=== PATIENT | female | born 2005 | race Caucasian/White ===

== ENCOUNTER 2025-05-24 10:28 | Inpatient (IN) ==
--- NOTE | 2025-05-24 11:02 | Emergency Department Note ---
Impression & Plan UTI (urinary tract infection), Nausea, C. difficile colitis ED Provider Note CHIEF COMPLAINT: Abdominal pain HISTORY OF PRESENTING ILLNESS: Patient is a 20-year-old female presents to the emergency department today for complaints of abdominal pain. She reports following with GI at [facility] closely over the past several months and last month was diagnosed with Crohn's disease. While having a workup for Crohn's disease she tested positive for C. difficile 9 days ago and was placed on antibiotics. Today is the last day of her antibiotics. She states yesterday she did develop abdominal pain with nausea but no vomiting. This coming week she is going to start her first infusion of Remicade. She does have a history of abdominal problems such as small bowel obstruction, ileocolitis, nausea and vomiting. She reports yesterday she did take a laxative due to not moving her bowels for 2 to 3 days. She did take a bisacodyl tablet and was able to move her bowels shortly after. She denies any fevers/chills, vomiting, shortness of breath, chest pain, headaches, blurred vision, any neurological complaints, any blood in stool or urine, recent travel, or recent illness. REVIEW OF SYSTEMS: See HPI for pertinent positives and pertinent negatives. ALLERGIES: See below MEDICATIONS: See below PAST MEDICAL HISTORY: See below PHYSICAL EXAM: VITAL SIGNS - Vital signs and nursing notes were reviewed. GENERAL -20-year-old female appearing her stated age who is in no acute distress. Communicates well with provider and answers questions appropriately. HEAD - NC/AT. EYES - PERRL with EOMI bilaterally. Sclera anicteric. Palpebral conjunctiva pink and moist with no injection noted. MOUTH/OROPHARYNX - Without perioral cyanosis. Buccal mucosa pink and moist and without leukoplakia. Tongue midline with equal elevation of palate bilaterally. No tonsillar hypertrophy, erythema, or exudates noted. Good dentition noted. NECK - Neck with FROM. Supple to palpation. No nuchal rigidity. LUNGS - Chest wall symmetric without accessory muscle use, intercostals retractions, or central cyanosis. Normal vesicular breath sounds CTA B/L. No wheezes, rales, or rhonchi appreciated. CARDIAC - RRR with S1/S2. No murmur, rubs, or gallops appreciated. ABDOMEN - Abdominal contour is without pulsations or visible masses. Negative Crow's or Jimenez Jones's Signs. BS normoactive all four quadrants. No tenderness to palpation appreciated in all 4 quadrants. No guarding. No rebound Tenderness. No Vovsing's. No Robison's. No palpable masses, hepatosplenomegaly, or ascites noted. PSYCH - A&Ox3 and cooperates fully with examiner. Pt is very pleasant and interacts well with examiner. DIFFERENTIAL DIAGNOSIS: Differential diagnosis includes appendicitis, diverticulitis, bowel obstruction, inflammatory bowel disease, renal colic, PUD, biliary pathology, pancreatitis, mesenteric ischemia, aortic pathology, infection, genitourinary, UTI, perforated viscus, among others. ED COURSE AND MEDICAL DECISION MAKING: HISTORY FROM INDEPENDENT HISTORIAN: History was provided by the patient and her significant other who is at bedside. MONITOR: Continuous radiation monitor: Order was placed for continuous radiation monitor. Patient was placed on the radiation monitor and continuous pulse ox. Patient was noted to be in normal sinus rhythm at an initial rate of 96 bpm per my interpretation. INTERPRETATION OF LABS: I interpreted the labs with full lab results as below in the lab section of this note. Laboratory results pertinent to the emergent complaint are discussed in the MDM section below. The patient was advised to follow up with their PCP and/or specialist(s) for further outpatient monitoring and management of any abnormal results. INTERPRETATION OF IMAGING: Imaging studies were interpreted by myself and read by radiology as per the imaging section of this note. The patient was advised to follow up with their PCP and/or specialist(s) for further outpatient management of any non-emergent abnormal findings. CHRONIC MEDICAL/SOCIAL CONDITIONS AFFECTING CARE: No social concerns were identified as barriers to patients care. EXTERNAL RECORDS REVIEWED: I personally reviewed the patient's [facility] GI office visit from 04/16/2025. This reviewed the patient's recent hospitalization here at [facility] for a small bowel obstruction with ileocolitis. I also reviewed multiple communications between the patient, GI, her primary care doctor, and the pharmacist discussing the patient's symptoms, diagnosis, and diagnostic test results. ESCALATION OF CARE CONSIDERED: I considered admission on this patient with significant UTI with ascending infection, bladder. CONSULTATIONS: I consulted with the ED pharmacist and discussed antibiotic usage due to the patient's suspected C. difficile infection that was being treated with vancomycin. I consulted with Dr. Horner for admission to the hospital. The patient was accepted. SUMMARY: I examined the patient for complaints of abdominal pain. A physical exam and history were performed. Nursing notes, EMR, and medication list were personally reviewed. CBC showed a leukocytosis of 14.27. No anemia or thrombocytopenia. CMP showed no emergent findings, creatinine was 0.55. Lipase was 8. Urinalysis showed a turbid appearance, pH of 8, +3 protein, +2 ketones +3 blood, nitrate positive, leukocytes +2, white blood cells greater than 50, red blood cells greater than 20, hyaline cast 6-10, epithelial cells 3-5, urine bacteria +1. Serum hCG qualitative was negative. CT of the abdomen and pelvis showed cystitis with bilateral ascending UTI that is mildly greater on the right. There is free fluid in the pelvis, and mild wall thickening of the distal terminal ileum likely related to the Crohn's disease. There is improvement in inflammation from previous CT scan on 04/04/2025. On further review of the patient's chart from [facility] the patient was on her last day of vancomycin course for probable C. difficile infection. I do have concern with starting patient on antibiotics with the C. difficile. I did speak with the ED pharmacist who stated it would be better to hold off until the urine culture came back and the patient is not symptomatic. On reevaluation of the patient and asking her more specific UTI question she did state that she is not currently having any symptoms but a few days ago she did develop them and feels that the vancomycin did help mildly. However with the patient's CT scan showing ascending UTI the patient would benefit from IV antibiotics. Patient was given 1 L of normal saline, Zofran 4 mg, Tylenol 1 g IV with improvement in pain and nausea. I consulted with Dr. Horner for admission to the hospital. The patient was accepted. DIAGNOSIS: UTI, nausea, C. difficile TREATMENT PLAN/DISCHARGE INSTRUCTIONS: Admit to hospitalist services. Past Med/Surg History Problem List (Updated 05/24/25 @ 16:06 by EDUARD Ivey) C. difficile colitis (Acute) Nausea (Acute) UTI (urinary tract infection) (Acute) Ileocolitis Nausea & vomiting (Acute) Abdominal pain (Acute) SBO (small bowel obstruction) (Acute) Medical History OCD (obsessive compulsive disorder) Surgical History History of dental surgery Family History Grandfather (Maternal) Colorectal cancer Social History Smoking Status: Never smoker Hx Alcohol Use: Yes Alcohol type: wine Alcohol Intake Frequency: Monthly or Less Hx Substance Use: No Preferred Language: Ukrainian Communication Ability: Effective Gta Required: No Beliefs That Will Affect Care: None marital status: Single Current Living Situation: Significant Other current occupational status: employed Feels Safe at Home: Yes Assistive Devices: None Allergies Allergies Allergy/AdvReac Type Severity Reaction Status Date / Time No Known Allergies Allergy Unverified 04/04/25 10:22 Home Meds Home Medications Medication Instructions Recorded Confirmed melatonin 5 mg tablet 10 mg PO HS PRN Sleep 02/04/19 05/24/25 sertraline 100 mg tablet 100 mg PO DAILY 04/04/25 05/24/25 sertraline 50 mg tablet 50 mg PO DAILY 04/04/25 05/24/25 vancomycin 125 mg capsule 125 mg PO QID 05/24/25 05/24/25 Results & Data (ED) Vital Signs Vital Signs - 24 hr 05/24/25 10:31 05/24/25 11:06 05/24/25 11:18 Temperature 37.3 C Temperature Source Temporal Artery Scan Pulse Rate 107 H 97 H Pulse Rate from SpO2 Sensor 97 H Respiratory Rate 18 17 Respiratory Effort / Characteristics Non-Labored Spontaneous Respiratory Depth Normal Respiratory Pattern Regular Blood Pressure 120/69 Blood Pressure Mean 86 Pulse Oximetry 99 98 100 Oxygen Delivery Method Room Air Room Air Sepsis Recent Fever Within 48 Hours No Sepsis New/Unexplained Change in Mental Status N/A Sepsis Action Taken by Nursing No Action Required 05/24/25 11:24 05/24/25 11:30 05/24/25 11:30 Temperature Temperature Source Pulse Rate 88 97 H Pulse Rate from SpO2 Sensor 92 H 99 H Respiratory Rate 12 19 Respiratory Effort / Characteristics Respiratory Depth Respiratory Pattern Blood Pressure 104/70 Blood Pressure Mean 83 Pulse Oximetry 99 100 Oxygen Delivery Method Sepsis Recent Fever Within 48 Hours Sepsis New/Unexplained Change in Mental Status Sepsis Action Taken by Nursing 05/24/25 11:48 05/24/25 11:51 05/24/25 12:26 Temperature Temperature Source Pulse Rate 95 H 101 H 101 H Pulse Rate from SpO2 Sensor 95 H 104 H Respiratory Rate 15 23 Respiratory Effort / Characteristics Respiratory Depth Respiratory Pattern Blood Pressure Blood Pressure Mean Pulse Oximetry 99 97 Oxygen Delivery Method Sepsis Recent Fever Within 48 Hours Sepsis New/Unexplained Change in Mental Status Sepsis Action Taken by Nursing 05/24/25 12:30 05/24/25 12:30 05/24/25 12:30 Temperature Temperature Source Pulse Rate 92 H Pulse Rate from SpO2 Sensor 92 H Respiratory Rate 21 Respiratory Effort / Characteristics Respiratory Depth Respiratory Pattern Blood Pressure 92/55 L 92/55 L Blood Pressure Mean 67 67 Pulse Oximetry 97 Oxygen Delivery Method Sepsis Recent Fever Within 48 Hours Sepsis New/Unexplained Change in Mental Status Sepsis Action Taken by Nursing 05/24/25 12:57 05/24/25 13:00 05/24/25 13:15 Temperature Temperature Source Pulse Rate 90 86 Pulse Rate from SpO2 Sensor 91 H 89 Respiratory Rate 18 17 Respiratory Effort / Characteristics Respiratory Depth Respiratory Pattern Blood Pressure 98/59 L Blood Pressure Mean 73 Pulse Oximetry 97 98 Oxygen Delivery Method Sepsis Recent Fever Within 48 Hours Sepsis New/Unexplained Change in Mental Status Sepsis Action Taken by Nursing 05/24/25 13:36 05/24/25 13:51 05/24/25 14:00 Temperature Temperature Source Pulse Rate 81 86 Pulse Rate from SpO2 Sensor 80 85 Respiratory Rate 15 17 Respiratory Effort / Characteristics Respiratory Depth Respiratory Pattern Blood Pressure 91/62 L Blood Pressure Mean 75 Pulse Oximetry 97 98 Oxygen Delivery Method Sepsis Recent Fever Within 48 Hours Sepsis New/Unexplained Change in Mental Status Sepsis Action Taken by Nursing 05/24/25 14:00 05/24/25 14:00 05/24/25 14:21 Temperature Temperature Source Pulse Rate 84 Pulse Rate from SpO2 Sensor 85 Respiratory Rate 13 Respiratory Effort / Characteristics Respiratory Depth Respiratory Pattern Blood Pressure 91/62 L 91/62 L Blood Pressure Mean 75 75 Pulse Oximetry 97 Oxygen Delivery Method Sepsis Recent Fever Within 48 Hours Sepsis New/Unexplained Change in Mental Status Sepsis Action Taken by Nursing 05/24/25 14:30 05/24/25 14:30 05/24/25 14:42 Temperature Temperature Source Pulse Rate 75 71 Pulse Rate from SpO2 Sensor 72 72 Respiratory Rate 15 20 Respiratory Effort / Characteristics Respiratory Depth Respiratory Pattern Blood Pressure 86/61 L Blood Pressure Mean 69 Pulse Oximetry 97 96 Oxygen Delivery Method Sepsis Recent Fever Within 48 Hours Sepsis New/Unexplained Change in Mental Status Sepsis Action Taken by Nursing 05/24/25 14:43 05/24/25 14:51 Temperature Temperature Source Pulse Rate 77 Pulse Rate from SpO2 Sensor 79 Respiratory Rate 20 Respiratory Effort / Characteristics Respiratory Depth Respiratory Pattern Blood Pressure 89/58 L Blood Pressure Mean 61 Pulse Oximetry 99 Oxygen Delivery Method Sepsis Recent Fever Within 48 Hours Sepsis New/Unexplained Change in Mental Status Sepsis Action Taken by Nursing Laboratory Data 05/24/25 10:53 05/24/25 11:04 Lab Results 05/24/25 05/24/25 05/24/25 Range/Units 10:53 11:04 12:30 WBC 14.27 H (4.8-10.8) K/ul RBC 3.99 L (4.20-5.40) M/uL Hgb 12.0 (12.0-16.0) g/dl Hct 35.7 L (37.0-47.0) % MCV 89.5 (80.0-100.0) fL MCH 30.1 (25.0-34.0) pg MCHC 33.6 (32.0-36.0) g/dL RDW Std Deviation 41.1 (36.4-46.3) fL RDW Coeff of [place] 12.4 (11.5-14.5) % Plt Count 335 (130-400) K/uL MPV 10.1 (9.4-12.4) fL Immature Gran % (Auto) 0.4 % Neut % (Auto) 82.1 % Lymph % (Auto) 7.5 % [place] % (Auto) 9.5 % Eos % (Auto) 0.1 % Baso % (Auto) 0.4 % Neut # (Auto) 11.71 H (1.40-6.50) K/uL Lymph # (Auto) 1.07 L (1.20-3.40) K/uL [place] # (Auto) 1.36 H (0.11-0.59) K/uL Eos # (Auto) 0.02 (0.00-0.50) K/uL Baso # (Auto) 0.05 (0.00-0.20) K/uL Immature Gran # (Auto) 0.06 (0.01-0.20) K/uL Sodium 138 (136-145) mmol/L Potassium 3.8 (3.5-5.1) mmol/L Chloride 105 (98-107) mmol/L Carbon Dioxide 25 (21-32) mmol/L Anion Gap 8 (3-11) BUN 6 (6-23) mg/dl Creatinine 0.55 L (0.6-1.2) mg/dl Est Cr Clr Drug Dosing 139.1 ml/min eGFR 132.83 BUN/Creatinine Ratio 10.9 (10-20) Glucose 104 H (70-99(Fasting)) mg/dl Lactate (0.4-2.0) mmol/L Calcium 9.4 (8.6-10.3) mg/dl Total Bilirubin 0.6 (0.2-1.0) mg/dl AST 10 L (13-39) U/L ALT 7 (7-52) U/L Alkaline Phosphatase 51 (34-104) U/L Total Protein 7.6 (6.0-8.3) gm/dl Albumin 4.4 (3.4-5.0) gm/dl Globulin 3.2 (2.5-4.0) gm/dl Albumin/Globulin Ratio 1.4 (0.9-2) Lipase 8 L (11-82) U/L HCG, Qual Negative (Negative) Urine Color Recluse Urine Appearance Turbid A (Clear) Urine pH 8.0 H (4.5-7.5) Ur Specific [place] 1.017 (1.000-1.030) Urine Protein 3+ H (Negative) Urine Glucose (UA) Negative (Negative) Urine Ketones 2+ H (Negative) Urine Blood 3+ H (Negative) Urine Nitrite Positive A (Negative) Urine Bilirubin Negative (Negative) Urine Urobilinogen Negative (Negative) Ur Leukocyte Esterase 2+ H (Negative) Urine WBC (Auto) >50 H (0-5) /hpf Urine RBC (Auto) >20 H (0-2) /hpf U Hyaline Cast (Auto) 6-10 H (0-2) /lpf U Epithel Cells (Auto) 3-5 H (0-2) /hpf Urine Bacteria (Auto) 1+ H (None Seen) Urine Comment 05/24/25 Range/Units 14:47 WBC (4.8-10.8) K/ul RBC (4.20-5.40) M/uL Hgb (12.0-16.0) g/dl Hct (37.0-47.0) % MCV (80.0-100.0) fL MCH (25.0-34.0) pg MCHC (32.0-36.0) g/dL RDW Std Deviation (36.4-46.3) fL RDW Coeff of [place] (11.5-14.5) % Plt Count (130-400) K/uL MPV (9.4-12.4) fL Immature Gran % (Auto) % Neut % (Auto) % Lymph % (Auto) % [place] % (Auto) % Eos % (Auto) % Baso % (Auto) % Neut # (Auto) (1.40-6.50) K/uL Lymph # (Auto) (1.20-3.40) K/uL [place] # (Auto) (0.11-0.59) K/uL Eos # (Auto) (0.00-0.50) K/uL Baso # (Auto) (0.00-0.20) K/uL Immature Gran # (Auto) (0.01-0.20) K/uL Sodium (136-145) mmol/L Potassium (3.5-5.1) mmol/L Chloride (98-107) mmol/L Carbon Dioxide (21-32) mmol/L Anion Gap (3-11) BUN (6-23) mg/dl Creatinine (0.6-1.2) mg/dl Est Cr Clr Drug Dosing ml/min eGFR BUN/Creatinine Ratio (10-20) Glucose (70-99(Fasting)) mg/dl Lactate 0.5 (0.4-2.0) mmol/L Calcium (8.6-10.3) mg/dl Total Bilirubin (0.2-1.0) mg/dl AST (13-39) U/L ALT (7-52) U/L Alkaline Phosphatase (34-104) U/L Total Protein (6.0-8.3) gm/dl Albumin (3.4-5.0) gm/dl Globulin (2.5-4.0) gm/dl Albumin/Globulin Ratio (0.9-2) Lipase (11-82) U/L HCG, Qual (Negative) Urine Color Urine Appearance (Clear) Urine pH (4.5-7.5) Ur Specific [place] (1.000-1.030) Urine Protein (Negative) Urine Glucose (UA) (Negative) Urine Ketones (Negative) Urine Blood (Negative) Urine Nitrite (Negative) Urine Bilirubin (Negative) Urine Urobilinogen (Negative) Ur Leukocyte Esterase (Negative) Urine WBC (Auto) (0-5) /hpf Urine RBC (Auto) (0-2) /hpf U Hyaline Cast (Auto) (0-2) /lpf U Epithel Cells (Auto) (0-2) /hpf Urine Bacteria (Auto) (None Seen) Urine Comment Administered Medications Sodium Chloride (Nss) 1,000 mls @ 100 mls/hr IV .Q10H JAYDA Stop: 05/25/25 00:14 Last Admin: 05/24/25 14:34 Dose: 100 mls/hr Documented By: TOMI Piperacillin Sod/Tazobactam Sod (Zosyn) 4.5 gm in 100 mls @ 200 mls/hr IV NOW STA; Protocol Stop: 05/24/25 16:06 Last Admin: 05/24/25 15:47 Dose: 200 mls/hr Documented By: TOMI Discontinued Medications Sodium Chloride (Nss) 1,000 mls @ 999 mls/hr IV .Q1H1M STA Stop: 05/24/25 11:51 Last Infusion: 05/24/25 12:15 Dose: Infused Documented By: Admin: 05/24/25 11:14 Dose: 999 mls/hr Documented By: JERRY Acetaminophen (Ofirmev) 1,000 mg in 100 mls @ 400 mls/hr IV NOW STA Stop: 05/24/25 11:05 Last Infusion: 05/24/25 11:30 Dose: Infused Documented By: Admin: 05/24/25 11:15 Dose: 400 mls/hr Documented By: JERRY Sodium Chloride (Nss) 500 mls @ 999 mls/hr IV .Q31M ONE Stop: 05/24/25 15:11 Last Admin: 05/24/25 14:45 Dose: 999 mls/hr Documented By: TOMI Ioversol (Optiray 320 100ml) 94 ml IV ONCE ONE Stop: 05/24/25 12:19 Last Admin: 05/24/25 12:18 Dose: 94 ml Documented By: JADE Ondansetron HCl (Ondansetron Inj 2 Mg/Ml 2 Ml Vial) 4 mg IV NOW STA Stop: 05/24/25 10:52 Last Admin: 05/24/25 11:16 Dose: 4 mg Documented By: JERRY Imaging Data Radiologist's Impression: Abdomen/Pelvis CT 05/24/25 10:54 CT SCAN OF THE ABDOMEN AND PELVIS WITH IV CONTRAST CLINICAL HISTORY: Generalized abdominal pain. Reported history of Crohn's disease. COMPARISON STUDY: Abdominal CT dated 04/04/2025. TECHNIQUE: Following the IV administration of 94 cc of Optiray 320, CT scan of the abdomen and pelvis is performed from the lung bases to the proximal femora. Images are reviewed in the axial, sagittal, and coronal planes. IV contrast was administered without complication. A dose lowering technique was utilized adhering to the principles of ALARA. CT DOSE: 470.21 mGy.cm FINDINGS: Lung bases: The heart is normal in size and without pericardial effusion. The lung bases are clear. Liver: The contrast-enhanced liver is normal in size, contour, and attenuation. There is no intrahepatic biliary ductal dilatation. The hepatic veins and portal veins are patent. Gallbladder: Unremarkable. Spleen: Normal in size and attenuation. Pancreas: Unremarkable. Adrenal glands: Unremarkable. Kidneys: The contrast enhanced kidneys are normal in size and without hydronephrosis. Urothelial thickening and enhancement is seen involving both ureters, right side greater than left. There is bilateral perinephric stranding, right side greater than left. Perinephric fluid is seen on the right. The kidneys enhance symmetrically. Abdominal vasculature: The abdominal aorta is normal in course and caliber. Bowel: There is no bowel obstruction. There is mild wall thickening distal/terminal ileum without surrounding inflammation. This likely corresponds to known history of Crohn's disease. The appendix is normal as visualized. Peritoneum: There is no intraperitoneal free air or abdominal ascites. There is a fat-containing umbilical hernia. Lymphadenopathy: None. Pelvic viscera: The bladder wall is thickened with mucosal hyperemia surrounding inflammation. The uterus and adnexa are normal as visualized no definite bilateral ovarian follicles. There is a small volume of free fluid in the cul-de-sac. Skeletal structures: No lytic or blastic lesions are seen. IMPRESSION: 1. There is evidence of cystitis with bilateral ascending urinary tract infections. This is greater on the right. Correlate with clinical findings and urinalysis. 2. Free fluid in the pelvis is nonspecific and likely physiologic. 3. There is mild wall thickening of the distal/terminal ileum, likely related to the known history of Crohn's disease. Inflammation has significantly improved from 04/04/2025. 4. Additional findings as above. ACT 112: Negative or not required by law. Electronically signed by: Ruben Hernandez M.D. 05/24/2025 1:04 PM Discharge Plan Visit Data Chief Complaint: Abdominal Pain Stated Complaint: STOMACH PAIN / CROHN W/ CDIFF ED Provider: Airam Macias ED Midlevel Provider: Sushma Montiel Discharge Problem: UTI (urinary tract infection), Nausea, C. difficile colitis Patient Disposition: Admitted As Inpatient Condition: Good Forms Stand Alone Forms: [facility] Prescriptions Prescriptions: No Action melatonin 5 mg Tablet 10 mg PO HS PRN (Reason: Sleep) sertraline 100 mg tablet 100 mg PO DAILY Rx Instructions: Take w/ 50mg to equal 150mg by mouth once daily sertraline 50 mg tablet 50 mg PO DAILY Rx Instructions: Take w/ 100mg to equal 150mg by mouth once daily vancomycin 125 mg capsule 125 mg PO QID Referrals Referrals: Ambreen Wright PA-C [Outside Practitioners] - Discharge Problem: UTI (urinary tract infection) Qualifiers: Urinary tract infection type: site unspecified Hematuria presence: without hematuria Qualified Code(s): N39.0 - Urinary tract infection, site not specified
[2025-05-24 11:14] LABS: Hematocrit (blood only) 35.7 % (37.0-47.0); Hemoglobin 12.0 g/dl (12.0-16.0); Immature Granulocytes # (auto) 0.06 K/uL (0.01-0.20); Immature Granulocytes % (auto) 0.4 %; Mean Corpuscular Hemoglobin 30.1 pg (25.0-34.0); Mean Corpuscular Volume 89.5 fL (80.0-100.0); Platelet Count 335 K/uL (130-400); RDW Standard Deviation 41.1 fL (36.4-46.3); Red Blood Count 3.99 M/uL (4.20-5.40); White Blood Count 14.27 K/ul (4.8-10.8)
[2025-05-24] MEDS: SODIUM CHLORIDE 0.9% 1,000 ML IV STA (11:14)
[2025-05-24] MEDS: ACETAMINOPHEN 1,000 MG/100 ML VIAL IV STA (11:15)
[2025-05-24] MEDS: ONDANSETRON INJ 2 MG/ML 2 ML VIAL IV STA (11:16)
[2025-05-24 11:31] LABS: Pregnancy Test, Serum Negative (Negative)
[2025-05-24 11:33] LABS: Alanine Aminotransferase 7.0 U/L (7-52); Albumin Globulin Ratio 1.4 (0.9-2); Alkaline Phosphatase 51.0 U/L (34-104); Anion Gap 8.0 (3-11); Bilirubin,Total 0.6 mg/dl (0.2-1.0); Blood Urea Nitrogen 6.0 mg/dl (6-23); Calcium 9.4 mg/dl (8.6-10.3); Carbon Dioxide 25.0 mmol/L (21-32); Chloride 105.0 mmol/L (98-107); Creatinine Clr Calc Pharmacy 139.1 ml/min; Globulin 3.2 gm/dl (2.5-4.0); Glucose 104.0 mg/dl (70-99(Fasting)); Lipase 8.0 U/L (11-82); Potassium 3.8 mmol/L (3.5-5.1); Sodium 138.0 mmol/L (136-145); Total Protein 7.6 gm/dl (6.0-8.3)
[2025-05-24] MEDS: OPTIRAY 320 100ml IV ONE (12:18)
[2025-05-24 12:45] LABS: Appearance Urine Turbid (Clear); Bacteria Urine Automated 1+ (None Seen); Glucose Urine UA Negative (Negative); RBC Urine Automated >20 /hpf (0-2); WBC Urine Automated >50 /hpf (0-5)
--- NOTE | 2025-05-24 13:06 | CT Scan Report ---
CT SCAN OF THE ABDOMEN AND PELVIS WITH IV CONTRAST CLINICAL HISTORY: Generalized abdominal pain. Reported history of Crohn's disease. COMPARISON STUDY: Abdominal CT dated 04/04/2025. TECHNIQUE: Following the IV administration of 94 cc of Optiray 320, CT scan of the abdomen and pelvi s is performed from the lung bases to the proximal femora. Images are reviewed in the axial, sagittal , and coronal planes. IV contrast was administered without complication. A dose lowering technique wa s utilized adhering to the principles of ALARA. CT DOSE: 470.21 mGy.cm FINDINGS: Lung bases: The heart is normal in size and without pericardial effusion. The lung bases are clear. Liver: The contrast-enhanced liver is normal in size, contour, and attenuation. There is no intrahepa tic biliary ductal dilatation. The hepatic veins and portal veins are patent. Gallbladder: Unremarkable. Spleen: Normal in size and attenuation. Pancreas: Unremarkable. Adrenal glands: Unremarkable. Kidneys: The contrast enhanced kidneys are normal in size and without hydronephrosis. Urothelial thic kening and enhancement is seen involving both ureters, right side greater than left. There is bilater al perinephric stranding, right side greater than left. Perinephric fluid is seen on the right. The k idneys enhance symmetrically. Abdominal vasculature: The abdominal aorta is normal in course and caliber. Bowel: There is no bowel obstruction. There is mild wall thickening distal/terminal ileum without becky rounding inflammation. This likely corresponds to known history of Crohn's disease. The appendix is normal as visualized. Peritoneum: There is no intraperitoneal free air or abdominal ascites. There is a fat-containing umbi lical hernia. Lymphadenopathy: None. Pelvic viscera: The bladder wall is thickened with mucosal hyperemia surrounding inflammation. The ut erus and adnexa are normal as visualized no definite bilateral ovarian follicles. There is a small vo lume of free fluid in the cul-de-sac. Skeletal structures: No lytic or blastic lesions are seen. IMPRESSION: 1. There is evidence of cystitis with bilateral ascending urinary tract infections. This is greater o n the right. Correlate with clinical findings and urinalysis. 2. Free fluid in the pelvis is nonspecific and likely physiologic. 3. There is mild wall thickening of the distal/terminal ileum, likely related to the known history of Crohn's disease. Inflammation has significantly improved from 04/04/2025. 4. Additional findings as above. ACT 112: Negative or not required by law. Electronically signed by: Ruben Hernandez M.D. 05/24/2025 1:04 PM
--- NOTE | 2025-05-24 13:41 | History & Physical Report ---
Date of Service May 24, 2025 Assessment & Plan (1) Sepsis: (2) Acute pyelonephritis: (3) Crohn disease: (4) C. difficile colitis: (5) OCD (obsessive compulsive disorder): Plan This is a 20 y/o female with a LMP of 1 week ago, newly diagnosed Crohn disease with admission in March for high-grade SBO, recent positive test for C diff for which she's on a course of Vancomycin (last day was to be today), who presented to the ED today with abdominal pain. Work-up in the ED was significant for WBCs elevated at 14.27, UA with pH 8.0, 3+ protein, 2+ ketones, 3+ blood, positive nitrite, 2+ leuk esterase, >50 wbc/hpf, >20 rbc/hpf, 1+ bacteria. CT abd/pel showed cystitis w/ b/l ascending UTI with evidence of b/l perinephric stranding, greater on the right with perinephric fluid. Pt referred for admission for IV antibiotics and magement of pyelonephritis. On review of vital signs and labs, pt meets sepsis criteria with tachycardia, leukocytosis, and evidence of UTI. #Sepsis #Complicated pyelonephritis - Admit to med telemetry - Since pt mets sepsis criteria, will add lactate and blood cultures - Give additional 500 cc NSS bolus due to hypotension, received 1000 ml thus far in the ED - will make 1500 ml total (~30 ml/kg per sepsis protocol) - then maintenance at 100 ml/hr - Broaden antibiotic coverage for pyelonephritis in view of recent hospitalization and immunocompromised state with underlying IBD, recent steroids - change to Zosyn pending culture results - Labs in the AM #Recent C. diff infection - Was completing course of vancomycin today - due to need for broad-spectrum antibiotic, will extend course of oral vancomycin #Crohn disease - Imaging improved from prior - No evidence of bowel obstruction at present - Diet as tolerated - Will need to defer initiation of Remicade due to active infection/sepsis - pt to f/u with outpatient GI to discuss #OCD - Chronic, continue sertraline Pt seen and reviewed with collaborating physician, Dr. Horner. Plan of care discussed and as outlined above. Code status: full code DVT prophylaxis: Lovenox Fiance/family updated at bedside - all questions answered. Marissa Ro PA-C History of Present Illness Chief Complaint: abdominal pain Primary Care Provider: EDUADR Reece This is a 20 y/o female with a LMP of 1 week ago, newly diagnosed Crohn's disease with admission in March for high-grade SBO, recent positive test for C diff for which she's on a course of Vancomycin (last day was to be today), who presented to the ED today with abdominal pain. Pt reports she developed UTI symptoms 3-4 days ago with foul odor to urine and mild dysuria. She also noted about a day of urinary frequency before all urinary symptoms seemed to resolve two days ago. She reports that this has happened previously so she didn't think anything of it. However, two nights ago (Sunday night) she started with periumbilical to suprapubic pain, initially intermittent but today became more constant so came to the ED for evaluation. She also noted no BM for two days and Sunday so she took laxatives per recommendation of GI with resultant BM yesterday - denies melena or hematochezia. Today she developed associated nausea but no vomiting. Denies fevers, chills, sweats, hematuria, nocturia. She was scheduled to start Remicade this week. She denies prior treatment for UTI or history of pyelonephritis. Allergies Allergy/AdvReac Type Severity Reaction Status Date / Time No Known Allergies Allergy Unverified 04/04/25 10:22 Home Medications Medication Instructions Recorded Confirmed Type melatonin 5 mg tablet 10 mg PO HS PRN Sleep 02/04/19 05/24/25 History sertraline 100 mg tablet 100 mg PO DAILY 04/04/25 05/24/25 History sertraline 50 mg tablet 50 mg PO DAILY 04/04/25 05/24/25 History vancomycin 125 mg capsule 125 mg PO QID 05/24/25 05/24/25 History Past Med/Surg History Problem List (Updated 05/24/25 @ 17:12 by Magdalene Ro PA-C) Crohn disease Sepsis Acute pyelonephritis C. difficile colitis (Acute) Nausea (Acute) UTI (urinary tract infection) (Acute) Ileocolitis Medical History (Updated 05/24/25 @ 17:12 by Magdalene Ro PA-C) SBO (small bowel obstruction) OCD (obsessive compulsive disorder) Surgical History History of dental surgery Family History Grandfather (Maternal) Colorectal cancer Social History Smoking Status: Never smoker Hx Alcohol Use: Yes Alcohol type: wine Alcohol Intake Frequency: Monthly or Less Hx Substance Use: No Preferred Language: Maori Communication Ability: Effective Environmental Analyst Required: No Beliefs That Will Affect Care: None marital status: Single Current Living Situation: Other Current Living Situation Comment: Home with fiance current occupational status: employed Feels Safe at Home: Yes Safety Concerns: Feels Safe At This Time Assistive Devices: None Review of Systems Review of Systems: All systems reviewed & are unremarkable except as noted in Subjective Physical Exam Physical Exam: General: awake, alert, NAD HEENT: no scleral icterus, moist oral mucosa Neck: supple, trachea midline Heart: RRR, no M/G/R Lungs: CTA bilaterally, no W/R/R Abdomen: soft, mild to moderate bilateral LQ to flank pain, +BS, no CVA tenderness Skin: warm, dry, no jaundice Extremities: no pedal edema, distal pulses intact and equal Neurologic: Ox3, no confusion or dysarthria Results & Data Results & Data Vital Signs (Past 12 Hours) Vital Signs Temp Pulse Resp BP Pulse Ox O2 Del Method 05/24/25 13:00 98/59 L 05/24/25 12:57 90 18 97 05/24/25 12:30 92/55 L 05/24/25 12:30 92/55 L 05/24/25 12:30 92 H 21 97 05/24/25 12:26 101 H 05/24/25 11:51 101 H 23 97 05/24/25 11:48 95 H 15 99 05/24/25 11:30 104/70 05/24/25 11:30 97 H 19 100 05/24/25 11:24 88 12 99 05/24/25 11:18 97 H 17 100 05/24/25 11:06 98 Room Air 05/24/25 10:31 37.3 C 107 H 18 120/69 99 Room Air Laboratory Results Lab Results 05/24/25 05/24/25 05/24/25 Range/Units 10:53 11:04 12:30 WBC 14.27 H (4.8-10.8) K/ul RBC 3.99 L (4.20-5.40) M/uL Hgb 12.0 (12.0-16.0) g/dl Hct 35.7 L (37.0-47.0) % MCV 89.5 (80.0-100.0) fL MCH 30.1 (25.0-34.0) pg MCHC 33.6 (32.0-36.0) g/dL RDW Std Deviation 41.1 (36.4-46.3) fL RDW Coeff of [place] 12.4 (11.5-14.5) % Plt Count 335 (130-400) K/uL MPV 10.1 (9.4-12.4) fL Immature Gran % (Auto) 0.4 % Neut % (Auto) 82.1 % Lymph % (Auto) 7.5 % [place] % (Auto) 9.5 % Eos % (Auto) 0.1 % Baso % (Auto) 0.4 % Neut # (Auto) 11.71 H (1.40-6.50) K/uL Lymph # (Auto) 1.07 L (1.20-3.40) K/uL [place] # (Auto) 1.36 H (0.11-0.59) K/uL Eos # (Auto) 0.02 (0.00-0.50) K/uL Baso # (Auto) 0.05 (0.00-0.20) K/uL Immature Gran # (Auto) 0.06 (0.01-0.20) K/uL Sodium 138 (136-145) mmol/L Potassium 3.8 (3.5-5.1) mmol/L Chloride 105 (98-107) mmol/L Carbon Dioxide 25 (21-32) mmol/L Anion Gap 8 (3-11) BUN 6 (6-23) mg/dl Creatinine 0.55 L (0.6-1.2) mg/dl Est Cr Clr Drug Dosing 139.1 ml/min eGFR 132.83 BUN/Creatinine Ratio 10.9 (10-20) Glucose 104 H (70-99(Fasting)) mg/dl Calcium 9.4 (8.6-10.3) mg/dl Total Bilirubin 0.6 (0.2-1.0) mg/dl AST 10 L (13-39) U/L ALT 7 (7-52) U/L Alkaline Phosphatase 51 (34-104) U/L Total Protein 7.6 (6.0-8.3) gm/dl Albumin 4.4 (3.4-5.0) gm/dl Globulin 3.2 (2.5-4.0) gm/dl Albumin/Globulin Ratio 1.4 (0.9-2) Lipase 8 L (11-82) U/L HCG, Qual Negative (Negative) Urine Color [place] Urine Appearance Turbid A (Clear) Urine pH 8.0 H (4.5-7.5) Ur Specific [place] 1.017 (1.000-1.030) Urine Protein 3+ H (Negative) Urine Glucose (UA) Negative (Negative) Urine Ketones 2+ H (Negative) Urine Blood 3+ H (Negative) Urine Nitrite Positive A (Negative) Urine Bilirubin Negative (Negative) Urine Urobilinogen Negative (Negative) Ur Leukocyte Esterase 2+ H (Negative) Urine WBC (Auto) >50 H (0-5) /hpf Urine RBC (Auto) >20 H (0-2) /hpf U Hyaline Cast (Auto) 6-10 H (0-2) /lpf U Epithel Cells (Auto) 3-5 H (0-2) /hpf Urine Bacteria (Auto) 1+ H (None Seen) Urine Comment Diagnostic Findings Abdomen/Pelvis CT 05/24/25 10:54 CT SCAN OF THE ABDOMEN AND PELVIS WITH IV CONTRAST CLINICAL HISTORY: Generalized abdominal pain. Reported history of Crohn's disease. COMPARISON STUDY: Abdominal CT dated 04/04/2025. TECHNIQUE: Following the IV administration of 94 cc of Optiray 320, CT scan of the abdomen and pelvis is performed from the lung bases to the proximal femora. Images are reviewed in the axial, sagittal, and coronal planes. IV contrast was administered without complication. A dose lowering technique was utilized adhering to the principles of ALARA. CT DOSE: 470.21 mGy.cm FINDINGS: Lung bases: The heart is normal in size and without pericardial effusion. The lung bases are clear. Liver: The contrast-enhanced liver is normal in size, contour, and attenuation. There is no intrahepatic biliary ductal dilatation. The hepatic veins and portal veins are patent. Gallbladder: Unremarkable. Spleen: Normal in size and attenuation. Pancreas: Unremarkable. Adrenal glands: Unremarkable. Kidneys: The contrast enhanced kidneys are normal in size and without hydronephrosis. Urothelial thickening and enhancement is seen involving both ureters, right side greater than left. There is bilateral perinephric stranding, right side greater than left. Perinephric fluid is seen on the right. The k idneys enhance symmetrically. Abdominal vasculature: The abdominal aorta is normal in course and caliber. Bowel: There is no bowel obstruction. There is mild wall thickening distal/terminal ileum without surrounding inflammation. This likely corresponds to known history of Crohn's disease. The appendix is normal as visualized. Peritoneum: There is no intraperitoneal free air or abdominal ascites. There is a fat-containing umbilical hernia. Lymphadenopathy: None. Pelvic viscera: The bladder wall is thickened with mucosal hyperemia surrounding inflammation. The uterus and adnexa are normal as visualized no definite bilateral ovarian follicles. There is a small volume of free fluid in the cul-de-sac. Skeletal structures: No lytic or blastic lesions are seen. IMPRESSION: 1. There is evidence of cystitis with bilateral ascending urinary tract infections. This is greater on the right. Correlate with clinical findings and urinalysis. 2. Free fluid in the pelvis is nonspecific and likely physiologic. 3. There is mild wall thickening of the distal/terminal ileum, likely related to the known history of Crohn's disease. Inflammation has significantly improved from 04/04/2025. 4. Additional findings as above. ACT 112: Negative or not required by law. Electronically signed by: Ruben Hernandez M.D. 05/24/2025 1:04 PM Medications Administered Discontinued Medications Sodium Chloride (Nss) 1,000 mls @ 999 mls/hr IV .Q1H1M STA Stop: 05/24/25 11:51 Last Infusion: 05/24/25 12:15 Dose: Infused Documented By: Admin: 05/24/25 11:14 Dose: 999 mls/hr Documented By: JERRY Acetaminophen (Ofirmev) 1,000 mg in 100 mls @ 400 mls/hr IV NOW STA Stop: 05/24/25 11:05 Last Infusion: 05/24/25 11:30 Dose: Infused Documented By: Admin: 05/24/25 11:15 Dose: 400 mls/hr Documented By: JERRY Ioversol (Optiray 320 100ml) 94 ml IV ONCE ONE Stop: 05/24/25 12:19 Last Admin: 05/24/25 12:18 Dose: 94 ml Documented By: JADE Ondansetron HCl (Ondansetron Inj 2 Mg/Ml 2 Ml Vial) 4 mg IV NOW STA Stop: 05/24/25 10:52 Last Admin: 05/24/25 11:16 Dose: 4 mg Documented By: JERRY Supervising Physician Co-Signing Physician Notes Patient seen and examined at bedside. and father in room as well. Patient doing ok today. States she has had significant abdominal pain for the past few days. Had some burning with urination 2 days ago which quickly went away. On exam, diffuse tenderness to palpation worst in the suprapubic region. UA highly concerning for UTI. CT abdomen and pelvis concerning for pyelonephritis. Exam, history and imaging consistent with complicated pyelonephritis in immunocompromised (steroids, autoimmune disease) patient. Sepsis criteria met (leukocytosis, tachycardia, with urinary source), fluid resuscitation initiated, lactic acid ordered. Treatment with zosyn empirically waiting for urine culture. I have seen and discussed the case with the collaborating advanced practitioner. I agree with the above H&P. I have reviewed and confirmed the patients medical history, the findings on physical examination, and the patients diagnosis and treatment plan with Magdalene Ro PA-C and agree with the information documented. I spent a total of 30 minutes coordinating, documenting, and providing care for this patient excluding time spent in the performance of separately billed services. All of the aforementioned completed outside of collaborating with the assigned advanced practitioner for a full treatment plan. I have reviewed the advanced practitioner's documentation, and I agree with, and take responsibility for the plan of care (1) Sepsis Sepsis acute organ dysfunction status: without acute organ dysfunction Sepsis type: sepsis due to unspecified organism Qualified Code(s): A41.9 - Sepsis, unspecified organism (3) Crohn disease Digestive disease complication type: with intestinal obstruction Gastrointestinal tract location: small and large intestine Qualified Code(s): K50.812 - Crohn's disease of both small and large intestine with intestinal obstruction (5) OCD (obsessive compulsive disorder) Obsessive-compulsive disorder type: unspecified Qualified Code(s): F42.9 - Obsessive-compulsive disorder, unspecified
[2025-05-24] MEDS: SODIUM CHLORIDE 0.9% 1,000 ML IV SCH (14:34)
[2025-05-24] MEDS: SODIUM CHLORIDE 0.9% 500 ML IV ONE (14:45)
[2025-05-24] MEDS: 4.5GM X1 IV STA (15:47)
[2025-05-24] MEDS ORDERED: ONDANSETRON INJ 2 MG/ML 2 ML VIAL IV PRN (17:00)
[2025-05-24] MEDS ORDERED: MELATONIN 3 MG TAB PO PRN (17:02)
[2025-05-24] MEDS: ACETAMINOPHEN 325 MG TAB PO PRN (17:30)
[2025-05-24] MEDS: CHERRY SYRUP 5 ML UDP PO SCH (17:30)
[2025-05-24] MEDS: VANCOMYCIN HCL 125 MG/2.5ML SOLN PO SCH (17:30)
[2025-05-24] MEDS: PIPERACILLIN/TAZOBACTAM 4.5 GM/100 ML BAG IV SCH (20:42)
[2025-05-25 07:09] LABS: Hematocrit (blood only) 32.3 % (37.0-47.0); Hemoglobin 10.4 g/dl (12.0-16.0); Immature Granulocytes # (auto) 0.03 K/uL (0.01-0.20); Immature Granulocytes % (auto) 0.4 %; Mean Corpuscular Hemoglobin 29.4 pg (25.0-34.0); Mean Corpuscular Volume 91.2 fL (80.0-100.0); Platelet Count 276 K/uL (130-400); RDW Standard Deviation 42.2 fL (36.4-46.3); Red Blood Count 3.54 M/uL (4.20-5.40); White Blood Count 7.66 K/ul (4.8-10.8)
[2025-05-25 08:04] LABS: Anion Gap 6.0 (3-11); Blood Urea Nitrogen 5.0 mg/dl (6-23); Calcium 8.5 mg/dl (8.6-10.3); Carbon Dioxide 24.0 mmol/L (21-32); Chloride 110.0 mmol/L (98-107); Creatinine Clr Calc Pharmacy 156.9 ml/min; Glucose 79.0 mg/dl (70-99(Fasting)); Potassium 3.7 mmol/L (3.5-5.1); Sodium 140.0 mmol/L (136-145)
[2025-05-25] MEDS: SERTRALINE HCL 50 MG TABLET PO SCH (08:15)
[2025-05-25] MEDS: SERTRALINE HCL 100 MG TABLET PO SCH (08:15)
[2025-05-25] MEDS: ENOXAPARIN INJ 40 MG/0.4 ML SYR SQ SCH (08:15)
--- NOTE | 2025-05-25 10:45 | Hospitalist Progress Note ---
Date of Service May 25, 2025 Assessment & Plan (1) Sepsis: (2) Acute pyelonephritis: (3) Crohn disease: (4) C. difficile colitis: (5) OCD (obsessive compulsive disorder): Plan This is a 20 y/o female with a LMP of 1 week ago, newly diagnosed Crohn disease with admission in March for high-grade SBO, recent positive test for C diff for which she's on a course of Vancomycin (last day was to be today), who presented to the ED today with abdominal pain and was found to have sepsis 2/2 pyelonephritis. Work-up in the ED was significant for WBCs elevated at 14.27, UA with pH 8.0, 3+ protein, 2+ ketones, 3+ blood, positive nitrite, 2+ leuk esterase, >50 wbc/hpf, >20 rbc/hpf, 1+ bacteria. CT abd/pel showed cystitis w/ b/l ascending UTI with evidence of b/l perinephric stranding, greater on the right with perinephric fluid. Pt referred for admission for IV antibiotics and magement of pyelonephritis. On review of vital signs and labs, pt meets sepsis criteria with tachycardia, leukocytosis, and evidence of UTI. #Sepsis #Complicated pyelonephritis - Met sepsis criteria on admission - CT abd pelvis showed cystitis w/ b/l ascending UTI with evidence of b/l perinephric stranding, greater on the right with perinephric fluid - Give additional 500 cc NSS bolus due to hypotension, received 1000 ml thus far in the ED - will make 1500 ml total (~30 ml/kg per sepsis protocol) - then maintenance at 100 ml/hr - Broaden antibiotic coverage for pyelonephritis in view of recent hospitalization and immunocompromised state with underlying IBD, recent steroids - continue Zosyn until culture results - BP soft today with SBP 90s, close to baseline per patient; asymptomatic - Prelim urine culture growing E coli - Await cx sensitivities #Recent C. diff infection - Was completing course of vancomycin today - due to need for broad-spectrum antibiotic, will extend course of oral vancomycin #Crohn disease - Imaging improved from prior - No evidence of bowel obstruction at present - Diet as tolerated - Will need to defer initiation of Remicade due to active infection/sepsis - pt to f/u with outpatient GI to discuss #OCD - Chronic, continue sertraline DVT Ppx: SQ lovenox Code status: FULL Dispo: Admitted to med/tele, will downgrade to med/surg given improved clinical state. Anticipate dc home in 1-2 days once culture finalizes Patient seen in collaboration with Dr. Deng. Please see addendum. I spent a total of 45 minutes coordinating, documenting, and providing care for this patient excluding time spent in the performance of separately billed ser vices or time spent by another provider/QHP. Admission and Anticipated Discharge Date Admission Date: May 24, 2025 Supervising Physician Co-Signing Physician Notes Patient seen and examined Agree with finding and plan as detailed by Barbara Briscoe PA-C Subjective Seen and examined in 277-2. Feeling much better today. Back and abdominal pain has resolved. No dysuria. Blood pressure on lower side at baseline. No F/C, lightheadedness, CP, SOB, N/V, abd pain, diarrhea or constipation. Review of Systems Review of Systems: At least ten systems reviewed and negative except as noted in the HPI. Physical Exam Physical Exam: Gen: WD/WN, NAD, sittingup in bed, A&Ox3 HEENT: Normocephalic, atraumatic, conjunctivae moist, sclerae anicteric, mucous membranes moist Lung: Clear to Auscultation bilaterally Heart: Regular rate, regular rhythm Abdomen: Soft, NT, ND +BS x 4 Extremities: no edema Skin: Warm, no rash Results & Data Results & Data Vital Signs (Past 12 Hours) Vital Signs Temp Pulse Pulse Resp BP Pulse Ox O2 Del Method 05/25/25 08:02 36.8 C 73 16 95/60 L 99 Room Air 05/25/25 06:45 80 05/25/25 03:35 36.6 C 77 16 91/54 L 98 Room Air 05/24/25 23:50 89 05/24/25 23:12 36.7 C 73 16 93/58 L 100 Room Air Laboratory Results Short CBC 05/25/25 Range/Units 05:47 WBC 7.66 (4.8-10.8) K/ul Hgb 10.4 L (12.0-16.0) g/dl Hct 32.3 L (37.0-47.0) % Plt Count 276 (130-400) K/uL BMP 05/25/25 05:47 Sodium 140 Potassium 3.7 Chloride 110 H Carbon Dioxide 24 BUN 5 L Creatinine 0.49 L Glucose 79 Calcium 8.5 L Diagnostic Findings Abdomen/Pelvis CT 05/24/25 10:54 CT SCAN OF THE ABDOMEN AND PELVIS WITH IV CONTRAST CLINICAL HISTORY: Generalized abdominal pain. Reported history of Crohn's disease. COMPARISON STUDY: Abdominal CT dated 04/04/2025. TECHNIQUE: Following the IV administration of 94 cc of Optiray 320, CT scan of the abdomen and pelvis is performed from the lung bases to the proximal femora. Images are reviewed in the axial, sagittal, and coronal planes. IV contrast was administered without complication. A dose lowering technique was utilized adhering to the principles of ALARA. CT DOSE: 470.21 mGy.cm FINDINGS: Lung bases: The heart is normal in size and without pericardial effusion. The lung bases are clear. Liver: The contrast-enhanced liver is normal in size, contour, and attenuation. There is no intrahepatic biliary ductal dilatation. The hepatic veins and portal veins are patent. Gallbladder: Unremarkable. Spleen: Normal in size and attenuation. Pancreas: Unremarkable. Adrenal glands: Unremarkable. Kidneys: The contrast enhanced kidneys are normal in size and without hydronephrosis. Urothelial thickening and enhancement is seen involving both ureters, right side greater than left. There is bilateral perinephric stranding, right side greater than left. Perinephric fluid is seen on the right. The kidneys enhance symmetrically. Abdominal vasculature: The abdominal aorta is normal in course and caliber. Bowel: There is no bowel obstruction. There is mild wall thickening distal/terminal ileum without surrounding inflammation. This likely corresponds to known history of Crohn's disease. The appendix is normal as visualized. Peritoneum: There is no intraperitoneal free air or abdominal ascites. There is a fat-containing umbilical hernia. Lymphadenopathy: None. Pelvic viscera: The bladder wall is thickened with mucosal hyperemia surrounding inflammation. The uterus and adnexa are normal as visualized no definite bilateral ovarian follicles. There is a small volume of free fluid in the cul-de-sac. Skeletal structures: No lytic or blastic lesions are seen. IMPRESSION: 1. There is evidence of cystitis with bilateral ascending urinary tract infections. This is greater on the right. Correlate with clinical findings and urinalysis. 2. Free fluid in the pelvis is nonspecific and likely physiologic. 3. There is mild wall thickening of the distal/terminal ileum, likely related to the known history of Crohn's disease. Inflammation has significantly improved from 04/04/2025. 4. Additional findings as above. ACT 112: Negative or not required by law. Electronically signed by: Ruben Hernandez M.D. 05/24/2025 1:04 PM (1) Sepsis Sepsis acute organ dysfunction status: without acute organ dysfunction Sepsis type: sepsis due to unspecified organism Qualified Code(s): A41.9 - Sepsis, unspecified organism (3) Crohn disease Digestive disease complication type: with intestinal obstruction Gastrointestinal tract location: small and large intestine Qualified Code(s): K50.812 - Crohn's disease of both small and large intestine with intestinal obstruction (5) OCD (obsessive compulsive disorder) Obsessive-compulsive disorder type: unspecified Qualified Code(s): F42.9 - Obsessive-compulsive disorder, unspecified
[2025-05-25] MEDS: SODIUM CHLORIDE 0.9% 500 ML IV SCH (12:19)
[2025-05-26 07:17] LABS: Hematocrit (blood only) 33.5 % (37.0-47.0); Hemoglobin 11.0 g/dl (12.0-16.0); Mean Corpuscular Hemoglobin 29.6 pg (25.0-34.0); Mean Corpuscular Volume 90.1 fL (80.0-100.0); Platelet Count 295 K/uL (130-400); RDW Standard Deviation 40.7 fL (36.4-46.3); Red Blood Count 3.72 M/uL (4.20-5.40); White Blood Count 5.43 K/ul (4.8-10.8)
[2025-05-26 07:43] LABS: Anion Gap 6.0 (3-11); Blood Urea Nitrogen 6.0 mg/dl (6-23); Calcium 9.0 mg/dl (8.6-10.3); Carbon Dioxide 26.0 mmol/L (21-32); Chloride 109.0 mmol/L (98-107); Creatinine Clr Calc Pharmacy 156.9 ml/min; Glucose 94.0 mg/dl (70-99(Fasting)); Potassium 3.6 mmol/L (3.5-5.1); Sodium 141.0 mmol/L (136-145)
[2025-05-26 11:40] VITALS: BP 88/57; PULSE 63; RESP 16; TEMP 97.5; O2SAT 98
--- NOTE | 2025-05-26 15:13 | Discharge Summary ---
Discharge Summary Date of Service May 26, 2025 Principal Dx & Hospital Course #1 = Principal Diagnosis (1) Sepsis: (2) Acute pyelonephritis: (3) Crohn disease: (4) C. difficile colitis: (5) OCD (obsessive compulsive disorder): Plan This is a 20 y/o female with a LMP of 1 week ago, newly diagnosed Crohn disease with admission in March for high-grade SBO, recent positive test for C diff for which she's on a course of Vancomycin (last day was to be today), who presented to the ED today with abdominal pain and was found to have sepsis 2/2 pyelonephritis. #Sepsis #Complicated pyelonephritis - Met sepsis criteria on admission - CT abd pelvis showed cystitis w/ b/l ascending UTI with evidence of b/l perinephric stranding, greater on the right with perinephric fluid - Broaden antibiotic coverage for pyelonephritis in view of recent hospitalization and immunocompromised state with underlying IBD, recent steroids - continue Zosyn until culture results - BP soft today with SBP 90s, close to baseline per patient; asymptomatic - Final urine culture growing E coli -> discharge on Cefdinir to complete 10 d course - Preliminary blood cx negative, will follow up on final result #Recent C. diff infection - Completed course of PO Vanco for c diff on day of admission and course of Vanco extended while on broad-spectrum antibiotic - Plan to continue prophylactic daily dosing of PO vanco until Cefdinir course complete, continue daily probiotic #Crohn disease - Imaging improved from prior - No evidence of bowel obstruction at present - Diet as tolerated - Will need to defer initiation of Remicade due to active infection/sepsis - pt to f/u with outpatient GI to discuss next month #OCD - Chronic, continue sertraline Notes For Next Care Provider pyelo in patient with recent c diff Medication Changes From Visit Cefdinir to complete abx course for pyelo, continue ppx PO vanco while on abx Admission HPI Per Admitting Provider This is a 20 y/o female with a LMP of 1 week ago, newly diagnosed Crohn's disease with admission in March for high-grade SBO, recent positive test for C diff for which she's on a course of Vancomycin (last day was to be today), who presented to the ED today with abdominal pain. Pt reports she developed UTI symptoms 3-4 days ago with foul odor to urine and mild dysuria. She also noted about a day of urinary frequency before all urinary symptoms seemed to resolve two days ago. She reports that this has happened previously so she didn't think anything of it. However, two nights ago (Sunday night) she started with periumbilical to suprapubic pain, initially intermittent but today became more constant so came to the ED for evaluation. She also noted no BM for two days and Sunday so she took laxatives per recommendation of GI with resultant BM yesterday - denies melena or hematochezia. Today she developed associated nausea but no vomiting. Denies fevers, chills, sweats, hematuria, nocturia. She was scheduled to start Remicade this week. She denies prior treatment for UTI or history of pyelonephritis. Admission Exam Per Admitting Provider General: awake, alert, NAD HEENT: no scleral icterus, moist oral mucosa Neck: supple, trachea midline Heart: RRR, no M/G/R Lungs: CTA bilaterally, no W/R/R Abdomen: soft, mild to moderate bilateral LQ to flank pain, +BS, no CVA tenderness Skin: warm, dry, no jaundice Extremities: no pedal edema, distal pulses intact and equal Neurologic: Ox3, no confusion or dysarthria Discharge Exam Gen: WD/WN, NAD, sittingup in bed, A&Ox3 HEENT: Normocephalic, atraumatic, conjunctivae moist, sclerae anicteric, mucous membranes moist Lung: Clear to Auscultation bilaterally Heart: Regular rate, regular rhythm Abdomen: Soft, NT, ND +BS x 4 Extremities: no edema Skin: Warm, no rash Updated Medication List Medication Instructions Recorded Confirmed Type melatonin 5 mg tablet 10 mg PO HS PRN Sleep 02/04/19 05/24/25 History sertraline 100 mg tablet 100 mg PO DAILY 04/04/25 05/24/25 History sertraline 50 mg tablet 50 mg PO DAILY 04/04/25 05/24/25 History vancomycin 125 mg capsule 125 mg PO QID 05/24/25 05/24/25 History Lactobacillus acidophilus 10 100 mmu cells (0.01 x 10 billion 05/26/25 Rx billion cell capsule (Probiotic) cell) PO DAILY #7 caps cefdinir 300 mg capsule 300 mg PO BID #15 caps 05/26/25 Rx vancomycin 125 mg capsule 125 mg PO DAILY #7 caps 05/26/25 Rx Hospital Stay Data Consultations 05/24/25 14:41 ED Decision to Admit Stat Diagnostic Imagining Performed 05/24/25 10:54 CT abd pelvis IV con only Stat Pending Results Patient Have Any Pending Studies at Discharge: Yes Discharge Instructions Given to Patient (Per Discharging Provider) MEDICATION CHANGES: NEW: Cefdinir 300mg by mouth twice daily until course complete forUTI. Probiotic daily x 5 days for GI Health. CHANGE: Continue daily PO Vancomycin 125mg for prophylaxis until antibiotic course above is compete. PENDING TEST RESULTS: Final blood culture pending - negative to date (and you will receive a call if any change) RECOMMENDATIONS FOR FOLLOW-UP: Follow up with PCP as scheduled. Follow up with GI as scheduled for recent Croons diagnosis, plan to initiate biologic medication. Complete antibiotic in its entirety. Continue medication regimen as scheduled aside from changes noted above. OTHER INSTRUCTIONS: Seek medical attention if you have: * temperature above 101 * chest pain or trouble breathing * abdominal pain, nausea, vomiting * diarrhea, dark stools or bloody stools * any unanswered questions or concerns Call 911 if symptoms are severe. Please take good care of yourself. Call if you have any questions or problems. You can reach a [facility] hospitalist on duty at [facility] 24 hours a day by calling [phone]. Total Time Total Time Spent Total Time Spent (In Minutes): 35 Supervising Physician Co-Signing Physician Notes Patient seen and examined Agree with findings and plans as detailed by Barbara Fair PA-C
== END 2025-05-26 16:30 | disposition home or self-care (01) | DRG 872 ==
LOC: ED 10:28 → SUATTDRO 14:13 → 2N 14:13